=== PATIENT | male | born 1980 | race Caucasian/White ===

== ENCOUNTER 2021-09-03 09:51 | Emergency (ER) | payer SELFPAY ==
--- NOTE | ~2021-09-03 | XR_ITS ---
EXAMINATION: XR chest 1V portable DATE: 09/03/2021 10:57 INDICATION: Cough. TECHNIQUE: A single frontal view of the chest was obtained. COMPARISON: Chest 2 views 06/23/2018 FINDINGS: The chest demonstrates clear lungs without pneumonia, pleural effusion, or pneumothorax. Th e heart size is normal. IMPRESSION: 1. No acute cardiopulmonary disease. Reviewed, dictated and finalized at location A.
--- NOTE | 2021-09-03 10:00 | PC.NURSE ---
patient being checking in and refusing to wear mask, coughing in room and on staff members. patient asked to please place mask on his face over his nose per hospital policy. Patients vital signs were stable and oxygen on room air is 98%. Patient states Fuck you bitch, fuck you. Want to kick me out of this hospital, I am not putting this mask on. patient asked to please calm down and that the mask on in in department is a policy of the hospital. patient became more verbally aggressive, sitting up out of the bed, raising voice and yelling Fuck you, bitch. I don't have to listen to you. Kick me out then. patient asked to calm down and provided new mask, male RN walked into room and patient then calmed down. patient then placed mask over face.
--- NOTE | 2021-09-03 10:07 | ECG_ITS ---
Measurements Intervals [place] Rate: 74 P: 68 [place]: 121 QRS: 85 QRSD: 101 T: 77 QT: 367 QTc: 408 Interpretive Statements SINUS RHYTHM WITH SINUS ARRHYTHMIA DELAYED PRECORDIAL R/S TRANSITION MINIMAL Q WAVES- INFERIOR LEADS BASELINE ARTIFACT- I, II, III, AVR, AVL, AVF, V1-V6 BORDERLINE ECG Electronically Signed On 09-03-2021 10:16:23 CDT by Leon Solorzano D.O.
[2021-09-03 10:10] VITALS: PULSE 80
[2021-09-03 10:29] LABS: Basophils Percent Auto 0.5 % (0.2-1.2); Eosinophils Absolute Auto 0.7 K/mm3 (0-0.3); Eosinophils Percent Auto 9.1 % (0-4.4); Hematocrit 47.2 % (42.0-52.0); Hemoglobin 15.2 g/dL (14.0-18.0); Immature Granulocyte Absolute 0.02 K/mm3 (0.00-0.031); Immature Granulocyte Percent A 0.2 % (0-0.5); Lymphocytes Absolute Auto 2.41 K/mm3 (0.9-3.2); Lymphocytes Percent Auto 29.9 % (18.3-44.2); Mean Corpuscular HGB Conc 32.2 g/dl (32-36); Mean Corpuscular Hemoglobin 30.2 pg (26-34); Mean Corpuscular Volume 93.7 fl (80-100); Mean Platelet Volume 9.1 fl (7.4-10.4); Monocytes Absolute Auto 0.8 K/mm3 (0.1-0.6); Neutrophils Absolute Auto 4.1 K/mm3 (1.3-6.7); Neutrophils Percent Auto 50.3 % (45.5-73.1); Platelet Count Result 274 k/mm3 (150-375); Red Blood Count 5.04 M/mm3 (4.6-6.20); Red Cell Distribution Width 12.7 % (11.5-14.5); White Blood Count 8.1 K/mm3 (4.5-10.0)
[2021-09-03] MEDS: methylPREDNISolone SOD SUCC 125 MG VIAL 80 MG IV PUSH (10:30)
[2021-09-03 10:39] VITALS: BP 112/82; PULSE 84; RESP 24; TEMP 36.4; O2SAT 98
[2021-09-03 10:53] LABS: Alanine Aminotransferase 15 U/L (4-50); Albumin Level 4.3 g/dL (3.5-5.1); Alkaline Phosphatase 64 U/L (38-126); Anion Gap 7 mmol/L (8-16); Aspartate Amino Transferase 23 U/L (17-59); Bilirubin,Total 0.4 mg/dL (0.2-1.3); Blood Urea Nitrogen 23 mg/dL (9-20); Calcium 9.2 mg/dL (8.4-10.2); Carbon Dioxide 31 mmol/L (22-30); Chloride 102 mmol/L (98-107); Estimated CRCL calculation 74 ml/min; Estimated Glomerular Filt Rate > 60; Glucose 88 mg/dL (65-110); Potassium 4.6 mmol/L (3.4-5.0); Sodium 140 mmol/L (137-145)
--- NOTE | 2021-09-03 11:47 | ED.GENADULT ---
HPI - General Adult General Chief complaint: Shortness of Breath/Dyspnea <Eliseo Fraser PA-C - Last Filed: 09/03/21 11:56> Stated complaint: sob <Eliseo Fraser PA-C - Last Filed: 09/03/21 11:56> Time Seen by Provider: 09/03/21 09:57 <Eliseo Fraser PA-C - Last Filed: 09/03/21 11:56> Source: patient and RN notes reviewed <Eliseo Fraser PA-C - Last Filed: 09/03/21 11:56> Mode of arrival: ambulatory <Eliseo Fraser PA-C - Last Filed: 09/03/21 11:56> Limitations: no limitations <Eliseo Fraser PA-C - Last Filed: 09/03/21 11:56> History of Present Illness HPI narrative: Patient is a 40-year-old male who presents with wheezing shortness of breath that worsened today patient has a history of tobacco abuse also notably smokes methamphetamine and crack he has not done this in a week he notes that he last smoked a cigar yesterday he denies any chest pain patient notes no other URI symptoms but notes chronic cough presents nondistressed patient has not been seen for this complaint nor is he taken anything for his symptoms <Eliseo Fraser PA-C - Last Filed: 09/03/21 11:56> Related Data Allergies/adverse reactions: Allergies Allergy/AdvReac Type Severity Reaction Status Date / Time Penicillins Allergy Unknown Verified 06/23/18 16:57 <Eliseo Fraser PA-C - Last Filed: 09/03/21 11:56> Review of Systems Review of Systems: All systems reviewed & are unremarkable except as noted in HPI and below <Eliseo Fraser PA-C - Last Filed: 09/03/21 11:56> PMFSH Social History Social History: Social History (Updated 09/03/21 @ 11:48 by Eliseo Fraser PA-C) Smoking status: Current every day smoker Tobacco type: cigars Substance use type: crack/cocaine and amphetamines <Eliseo Fraser PA-C - Last Filed: 09/03/21 11:56> Exam Narrative: GENERAL: Well-appearing, well-nourished, and in no acute distress. HEAD: Normocephalic, atraumatic. EYES: PERRLA and EOMI. ENT: Nares clear, no rhinorrhea or epistaxis. Mucous membranes moist. NECK: Supple. No adenopathy or masses. CHEST: Clear to auscultation. No respiratory distress. Coarse breath sounds with some mild wheezings no crackles HEART: Regular rate and rhythm. No murmur heard. Normal peripheral pulses. EXTREMITIES: Normal range of motion. No edema. SKIN: Warm, dry, no rash. NEURO: No focal deficits. Alert and oriented x3. PSYCH: Normal mood and affect. <Eliseo Fraser PA-C - Last Filed: 09/03/21 11:56> Course Course Emergency Course: Patient evaluated the emergency department will be sent home with medications was given steroids in the emergency department is afebrile nontoxic-appearing nondistressed felt appropriate for outpatient reevaluation ABCs and vital signs intact and stable provided with reasons to return <ANNE MARIE Farias Last Filed: 09/03/21 11:56> Vital Signs Vital signs: Vital Signs Pulse Rate 80 09/03/21 10:10 Temperature 97.5 F L 09/03/21 10:39 Pulse Rate 62 09/03/21 12:06 Respiratory Rate 20 09/03/21 12:06 Blood Pressure 108/58 L 09/03/21 12:06 Pulse Oximetry 98 09/03/21 12:06 <ANNE MARIE Farias Last Filed: 09/03/21 11:56> Medical Decision Making MDM Narrative Medical decision making narrative: Patient with symptoms most consistent with bronchitis secondary to substance abuse patient denies any other URI symptoms was tested for Covid had chest radiograph given steroids will be discharged with MDI and other medications for symptoms provided with follow-up agrees to do so <ANNE MARIE Farias Last Filed: 09/03/21 11:56> Vital Signs Vital Signs: Vital Signs Pulse Rate 80 09/03/21 10:10 Temperature 97.5 F L 09/03/21 10:39 Pulse Rate 62 09/03/21 12:06 Respiratory Rate 20 09/03/21 12:06 Blood Pressure 108/58 L 09/03/21 12:06 Pulse Oximetry 98 09/03/21 12:06 <PERLA Farias
[2021-09-03 12:06] VITALS: BP 108/58; PULSE 62; RESP 20; O2SAT 98
[2021-09-03 16:43] LABS: SARS-CoV-2 RNA PCR Negative
== END 2021-09-03 12:06 | disposition home or self-care (01) ==
PROVIDERS: Emergency Medicine Emergency Medical Services; Emergency Provider General Practice
DX: J40 Bronchitis, not specified as acute or chronic (principal); Z20.822 Contact with and (suspected) exposure to COVID-19; F14.10 Cocaine abuse, uncomplicated; F15.10 Other stimulant abuse, uncomplicated; F17.290 Nicotine dependence, other tobacco product, uncomplicated; R94.31 Abnormal electrocardiogram [ECG] [EKG]
CPT/HCPCS: 36415; 71045; 80053; 85025; 87040; 93005; 96374; 99284; C9803; J2930; U0003; U0005

== ENCOUNTER 2023-01-25 13:26 | Emergency (ER) | payer BC, SELFPAY ==
[2023-01-25] VITALS (17 sets, daily range): BP systolic 106–125; BP diastolic 80–97; PULSE 62–98; RESP 12–19; TEMP 36.2; O2SAT 100
--- NOTE | ~2023-01-25 | CT_ITS ---
EXAMINATION: CT brain wo con DATE: 01/25/2023 18:13 INDICATION: Headache. TECHNIQUE: Computed tomography (CT) of the head was performed without intravenous contrast. The mA wa s adjusted according to patient size. Iterative reconstruction technique was employed. The dose-lengt h product was 605.33 mGy-cm. COMPARISON: Head CT 11/28/2017 FINDINGS: There is no intracranial hemorrhage, acute infarction, or abnormal intracranial mass lesion . The ventricles are normal in size. The orbits are normal. There is mucosal thickening in the [place] sinuses. The mastoid air cells are normal. IMPRESSION: 1. Normal brain. Reviewed, dictated and finalized at location A. IMPRESSION: 1. Normal brain.
[2023-01-25] MEDS: SODIUM CHLORIDE 0.9% IV 1,000 ML 999 ML IV CONT (15:59)
[2023-01-25] MEDS: ONDANSETRON INJ 4 MG/2 ML VIAL IV PUSH (16:00)
[2023-01-25] MEDS: KETOROLAC 30 MG/ML VIAL (*BKC) IV PUSH (16:00)
[2023-01-25 16:10] LABS: Basophils Absolute Auto 0.1 K/mm3 (0.0-0.1); Basophils Percent Auto 0.8 % (0.2-1.2); Eosinophils Absolute Auto 0.3 K/mm3 (0-0.3); Eosinophils Percent Auto 5.4 % (0-4.4); Hematocrit 49.9 % (42.0-52.0); Hemoglobin 16.3 g/dL (14.0-18.0); Immature Granulocyte Absolute 0.01 K/mm3 (0.00-0.031); Immature Granulocyte Percent A 0.2 % (0-0.5); Lymphocytes Absolute Auto 1.82 K/mm3 (0.9-3.2); Lymphocytes Percent Auto 29.8 % (18.3-44.2); Mean Corpuscular HGB Conc 32.7 g/dl (32-36); Mean Corpuscular Hemoglobin 30.2 pg (26-34); Mean Corpuscular Volume 92.4 fl (80-100); Mean Platelet Volume 9.1 fl (7.4-10.4); Monocytes Absolute Auto 0.4 K/mm3 (0.1-0.6); Monocytes Percent Auto 7.2 % (2.6-8.5); Neutrophils Absolute Auto 3.5 K/mm3 (1.3-6.7); Neutrophils Percent Auto 56.6 % (45.5-73.1); Platelet Count Result 263 k/mm3 (150-375); Red Cell Distribution Width 12.6 % (11.5-14.5); White Blood Count 6.1 K/mm3 (4.5-10.0)
[2023-01-25 16:20] LABS: Anion Gap 5 mmol/L (8-16); Blood Urea Nitrogen 16 mg/dL (9-20); Calcium 8.8 mg/dL (8.4-10.2); Carbon Dioxide 32 mmol/L (22-30); Chloride 104 mmol/L (98-107); Estimated CRCL calculation 85 ml/min; Estimated Glomerular Filt Rate > 60; Glucose 87 mg/dL (65-110); Potassium 4.3 mmol/L (3.4-5.0); Sodium 141 mmol/L (137-145)
--- NOTE | 2023-01-25 17:30 | ED.HA ---
HPI - Headache General Chief Complaint: Headache Stated Complaint: headache x 2 hours, detoxing from meth x 2 weeks Time Seen by Provider: 01/25/23 15:40 History of Present Illness HPI Narrative: Patient is a 42-year-old male who presents ER with headache. Left-sided frontal. Throbbing. Reports improved with drinking some caffeine. No trauma to the head. No IV drug use. No fevers or chills or sweats. No neck stiffness. No upper or lower extremity numbness or tingling. Has occasional change in vision related to the headache. Sensitive to light. Patient reports he quit using methamphetamine 2 weeks ago. Related Data Allergies Allergy/AdvReac Type Severity Reaction Status Date / Time Penicillins Allergy Unknown Unknown Verified 01/25/23 13:51 Review of Systems Review of Systems: All systems reviewed & are unremarkable except as noted in HPI and below Constitutional: Constitutional: Denies chills, Denies fatigue and Denies fever(s) Eyes: Eyes: Reports change in vision and Reports photophobia ENT: Denies nasal congestion and Denies sore throat Cardiovascular: Cardiovascular: Denies chest pain, Denies rapid heart rate and Denies radiating jaw, neck or arm pain Neurologic: Denies confusion, Reports headache(s), Denies focal weakness and Denies numbness PMFSH Past Medical History Medical History (Updated 01/25/23 @ 18:52 by Junaid Haas MD) Healthy adult male Surgical History Surgical History (Updated 01/25/23 @ 17:32 by Junaid Haas MD) No history of previous surgery Social History Social History (Updated 09/03/21 @ 11:48 by Eliseo Fraser, PACourtneyC) Smoking status: Current every day smoker Tobacco type: cigars Substance use type: crack/cocaine and amphetamines Exam Narrative: GENERAL: Well-appearing, well-nourished, and in no acute distress. HEAD: Normocephalic, atraumatic. EYES: PERRLA and EOMI. NECK: FROM that is painless, No midline tenderness. CHEST: Clear to auscultation. No respiratory distress. HEART: Regular rate and rhythm. Normal peripheral pulses. ABDOMEN: Soft, nontender, nondistended. EXTREMITIES: Normal range of motion. No edema. SKIN: Warm, dry, no rash. NEURO: Alert and oriented x3. PSYCH: Normal mood and affect. Course Course Emergency Course: Patient resting comfortably. Headache and vision improved with Valium and Toradol. CT negative. Feels comfortable being discharged home. Vital Signs Vital signs: Vital Signs Temperature 97.2 F L 01/25/23 13:45 Pulse Rate 98 01/25/23 13:45 Respiratory Rate 16 01/25/23 13:45 Blood Pressure 125/97 H 01/25/23 13:45 Pulse Oximetry 100 01/25/23 13:45 Oxygen Delivery Room Air 01/25/23 13:45 Temperature 97.2 F L 01/25/23 13:45 Pulse Rate 98 01/25/23 13:45 Respiratory Rate 16 01/25/23 13:45 Blood Pressure 125/97 H 01/25/23 13:45 Pulse Oximetry 100 01/25/23 13:45 Oxygen Delivery Room Air 01/25/23 13:45 MDM - Headache Lab Data 01/25/23 15:59 01/25/23 15:59 Labs: Lab Results 01/25/23 01/25/23 Range/Units 15:59 15:59 WBC 6.1 (4.5-10.0) K/mm3 RBC 5.40 (4.6-6.20) M/mm3 Hgb 16.3 (14.0-18.0) g/dL Hct 49.9 (42.0-52.0) % MCV 92.4 (80-100) fl MCH 30.2 (26-34) pg MCHC 32.7 (32-36) g/dl RDW 12.6 (11.5-14.5) % Plt Count 263 (150-375) k/mm3 MPV 9.1 (7.4-10.4) fl Immature Gran % (Auto) 0.2 (0-0.5) % Neut % (Auto) 56.6 (45.5-73.1) % Lymph % (Auto) 29.8 (18.3-44.2) % [place] % (Auto) 7.2 (2.6-8.5) % Eos % (Auto) 5.4 H (0-4.4) % Baso % (Auto) 0.8 (0.2-1.2) % Lymph # (Auto) 1.82 (0.9-3.2) K/mm3 [place] # (Auto) 0.4 (0.1-0.6) K/mm3 Eos # (Auto) 0.3 (0-0.3) K/mm3 Baso # (Auto) 0.1 (0.0-0.1) K/mm3 Abs Immat Gran (auto) 0.01 (0.00-0.031) K/mm3 Absolute Neuts (auto) 3.5 (1.3-6.7) K/mm3 Absolute Nucleated RBC 0.0 (0.0-0.012) K/mm3 Nucleated RBC % 0.0 (0.0-0.2) % Sod
[2023-01-25] MEDS: diazePAM INJ (*CRX) 10 MG/2 ML SYRINGE 2.5 MG IV PUSH (18:20)
== END 2023-01-25 19:19 | disposition home or self-care (01) ==
PROVIDERS: Emergency Provider Emergency Medicine
DX: R51.9 Headache, unspecified (principal); F17.290 Nicotine dependence, other tobacco product, uncomplicated
CPT/HCPCS: 36415; 70450; 80048; 85025; 96361; 96374; 96375; 99284; J1885; J2405; J3360; J7030

== ENCOUNTER 2025-03-21 15:09 | Emergency (ER) | payer BC, SELFPAY ==
--- NOTE | ~2025-03-21 | XR_ITS ---
XR chest 2V Ordering provider: Nina Michel PA-C History: 44 years Male with . sob . Comparison: September 03, 2021 FINDINGS: MEDIASTINUM: The cardiac silhouette is not enlarged. Prominent júnior. LUNGS: No infiltrates, effusions or pneumothorax. Emphysematous changes of the lungs. Prominent bronc hovascular markings. OTHER: No free air under the diaphragm. IMPRESSION: No acute cardiopulmonary pathology. Reviewed, dictated and finalized at location A.
--- OUTSIDE RECORDS SUMMARY | 2025-03-21 15:12 | XMS_ITS | Patient Health Record ---
Author Organization [facility] Address [address] [place] [address] Care Team Providers Care Librarian Assistant Name Role Phone Tony Holbrook Primary Care Provider [phone] [facility], Adult GEOVANNY Unavailabl e [phone] Allergies Allergen (clinical drug ingredient) Drug/Non Drug Allergy documented on EMR Reaction Allergy Type Onset Date Status chocolate (uncoded) Unknown Allergy Active penicillin (uncoded) Unknown Allergy Active Reason For Referral No Information Medications Medication SIG (Take, Route, Frequency, Duration) Notes Start Date End Date Status Multivitamin Adult - Orally Not-Taking Zoloft 25 MG 1 tablet Orally Once a day for 30 day(s) 09/25/2017 Active ZyPREXA 5 MG 1 tablet Orally Once a day for 30 day(s) 09/25/2017 Active Folic Acid 800 MCG 1 tablet Orally Once a day Active Multivitamin Adults - Orally Active tiZANidine HCl 4 MG 1 tablet Orally ever y 6 hours for 4 days Active Thiamine HCl 100 MG 1 tablet Orally Once a day Active Gabapentin 300 MG 1 capsule before bedtime Orally Once a day Active hydrOXYzine Pamoate 50 MG 1 capsule Oral ly every 4 hrs for 4 days Active Gabapentin 600 MG 1 tablet Orally Once a day Active Problems Problem Type SNOMED Code ICD Code Onset Dates Problem Status W/U Status Risk Notes Problem [id number] Moderate episode of recurrent major depressive disorder (F33.1) Active confirmed Problem [id number] Schizophrenia, unspecified type (F20.9) Active confirmed Plan Of Treatment No Information Insurance Providers Payer Name Payer Address Payer Phone Subscriber Number Group Number Insured Name Patient Relationship to Insured Coverage Start Date Coverage End Date [place] [id number] [facility] [address] [place] [phone] [id number] Norberto Benton Self - patient is the insured 3 Medical (General) History Medical History History ICD Code alcohol dependence schizophrenia anxiety depression history of IV drug use Hospitalization History Reason Date(Month/Year) [place] [address]
[2025-03-21 15:13] VITALS: BP 114/96; PULSE 100; RESP 16; TEMP 36.4; O2SAT 96
--- NOTE | 2025-03-21 15:56 | ECG_ITS ---
Test Date: 2025-03-21 16:13:38 Measurements Intervals [place] Rate: 90 P: 78 [place]: 132 QRS: 88 QRSD: 97 T: 72 QT: 352 QTc: 432 Interpretive Statements SINUS RHYTHM POSSIBLE LEFT ATRIAL ENLARGEMENT [-0.1mV P-WAVE IN V1/V2] No previous ECG available for comparison Electronically Signed On 03-21-2025 21:56:49 CDT by Osmel Tellez M.D.
--- NOTE | 2025-03-21 16:47 | ED.SOB ---
HPI - SOB/Dyspnea General Chief Complaint: Shortness of Breath/Dyspnea Stated Complaint: infection in lungs SOB Time Seen by Provider: 03/21/25 15:55 Source: patient Mode of arrival: ambulatory Limitations: no limitations History of Present Illness HPI Narrative: This is a 44 year old male that presents to the ER for shortness of breath. Reports he inhaled concrete when he was mixing it 2 days ago. Has had worsening shortness of breath, cough. Denies fevers. Related Data Allergies Allergy/AdvReac Type Severity Reaction Status Date / Time Penicillins Allergy Unknown Unknown Verified 01/25/23 13:51 Review of Systems Review of Systems: CONSTITUTIONAL: Denies fever CARDIOVASCULAR: Denies chest pain RESPIRATORY: Reports cough and dyspnea. All systems reviewed & are unremarkable except as noted in HPI and below PMFSH Past Medical History Medical History (Updated 03/21/25 @ 18:02 by JACKY HoustonC) Healthy adult male Surgical History Surgical History (Updated 01/25/23 @ 17:32 by Junaid Haas MD) No history of previous surgery Social History Social History (Updated 09/03/21 @ 11:48 by Eliseo Fraser, PACourtneyC) Smoking status: Current every day smoker Tobacco type: cigars Substance use type: crack/cocaine and amphetamines Exam Narrative: GENERAL: Well-appearing, well-nourished, and in no acute distress. HEAD: Normocephalic, atraumatic. EYES: EOMI. ENT: Nares clear, no rhinorrhea or epistaxis. Mucous membranes moist. Oropharynx without tonsillar hypertrophy exudate or other lesions. NECK: Supple. No adenopathy or masses. CHEST:No respiratory distress. Scattered expiratory wheezing. No rales or rhonchi HEART: Regular rate and rhythm. No murmur heard. Normal peripheral pulses. EXTREMITIES: Normal range of motion. No edema. SKIN: Warm, dry, no rash. NEURO: No focal deficits. Alert and oriented x3. PSYCH: Normal mood and affect Course Course Emergency Course: Patient updated on his workup. Reports feeling much better. Ready for discharge Vital Signs Vital signs: Vital Signs Temperature 97.6 F 03/21/25 15:13 Pulse Rate 100 03/21/25 15:13 Respiratory Rate 16 03/21/25 15:13 Blood Pressure 114/96 H 03/21/25 15:13 Pulse Oximetry 96 0509/25 15:13 Temperature 97.6 F 03/21/25 15:13 Pulse Rate 102 H 03/21/25 17:49 Respiratory Rate 26 H 03/21/25 17:49 Blood Pressure 122/86 03/21/25 17:49 Pulse Oximetry 98 03/21/25 17:49 Oxygen Delivery Room Air 03/21/25 17:00 MDM - SOB/Dyspnea MDM Narrative Medical decision making narrative: Patient presents the emergency department for cough, shortness of breath. He is afebrile and nontoxic appearing. His vitals are stable. Oxygen saturation is normal on room air. Cbc metabolic panel without concerning findings. Chest x-ray without acute cardiopulmonary abnormality. Patient given nebulizer treatment and steroid with improvement. Updated on his workup. Agrees with plan of care. He is to follow up with primary provider. He was given warnings to return to the ER Differential Diagnosis Differential diagnosis: Likely acute exacerbation of chronic obstructive airways disease and community acquired pneumonia Lab Data Attestation: I reviewed the patient's lab results. 03/21/25 16:58 03/21/25 16:58 Labs: Lab Results 03/21/25 Range/Units 16:58 WBC 6.0 (4.5-10.0) K/mm3 RBC 4.90 (4.6-6.20) M/mm3 Hgb 14.4 (14.0-18.0) g/dL Hct 45.0 (42.0-52.0) % MCV 91.8 (80-100) fl MCH 29.4 (26-34) pg MCHC 32.0 (32-36) g/dl RDW 13.3 (11.5-14.5) % Plt Count 216 (150-375) k/mm3 MPV 9.1 (7.4-10.4) fl Immature Gran % (Auto) 0.2 (0-0.5) % Neut % (Auto) 51.2 (45.5-73.1) % Lymph % (Auto) 35.7 (18.3-44.2) % [place] % (Auto) 10.4 H (2.6-8.5) % Eos % (Auto) 2.0 (0-4.4) % Baso % (Auto) 0.5 (0.2-1.2) % Lymph # (Auto) 2.15 (0.9-3.2) K/mm3 [place] # (Auto) 0.6 (0.1-0.6) K/mm3 Eos # (Auto) 0.1 (0-0.3) K/mm3 Baso # (Auto) 0.0 (0.0-0.1) K/mm3 Abs Immat Gran (auto) 0.01 (0.00-0.031) K/mm3 Absolute Neuts (auto) 3.1 (1.3-6.7) K/mm3 Absolute Nucleated RBC 0.000 (0.0-0.012) K/mm3 Nucleated RBC % 0.0 (0.0-0.2) % PT 13.5 (11.1-14.7) Seconds INR 1.0 APTT 31.1 (22.3-36.8) Seconds Sodium 139 (137-145) mmol/L Potassium 4.1 (3.4-5.0) mmol/L Chloride 100 (98-107) mmol/L Carbon Dioxide 31 H (22-30) mmol/L Anion Gap 8 (4-12) mmol/L BUN 20 (9-20) mg/dL Creatinine 0.81 (0.7-1.3) mg/dL Estim Creat Clear Calc 86 ml/min Estimated GFR > 60 (59 - ) Glucose 121 H (65-110) mg/dL Calcium 8.6 (8.4-10.2) mg/dL Total Bilirubin 0.3 (0.2-1.3) mg/dL AST 41 (17-59) U/L ALT 29 (6-50) U/L Alkaline Phosphatase 79 (38-126) U/L Total Protein 8.0 (6.3-8.2) g/dL Albumin 4.2 (3.5-5.1) g/dL Imaging Data Radiologist's impression: ITS Impressions Chest X-Ray 03/21/25 16:28 IMPRESSION: No acute cardiopulmonary pathology. ECG Data EKG #1: ECG completion date: 03/21/25 EKG Interpretation: normal rate, sinus rhythm, no ST changes and normal QT Critical Care Time Critical Care Time Critical Care Time: No Discharge Plan Discharge Clinical Impression: Acute bronchitis Qualifiers: Bronchitis organism: unspecified organism Qualified Code(s): J20.9 - Acute bronchitis, unspecified Patient Disposition: Home Condition: Improved Instructions: Acute Bronchitis (ED) Additional Instructions: Return to the emergency department for worsening symptoms, or any other concerns Remain well-hydrated, get plenty of rest. Take Tylenol or Motrin [id number] for pain as needed. Continue steroid as prescribed. Albuterol 2 puffs every 4-6 hours as needed for shortness of breath or wheezing Follow up with primary care doctor Patient Language: Jordanian Prescriptions: New prednisone 20 mg tablet 40 mg PO DAILY 4 Days Qty: 8 0RF albuterol sulfate [Ventolin HFA] 90 mcg/actuation HFA aerosol inhaler 2 puff inhalation QID PRN (Reason: shortness of breath or wheezing) Qty: 8.5 0RF No Action prednisone 20 mg tablet 20 mg PO BID 3 Days Qty: 6 0RF albuterol sulfate 90 mcg/actuation HFA aerosol inhaler 2 puff inhalation QID PRN (Reason: shortness of breath or wheezing) Qty: 8.5 0RF naproxen 375 mg tablet 375 mg PO BID Qty: 14 0RF Follow-up/Referrals: Kate Turner MD [Physician] - PHYSICIAN,RETAIL FINANCIAL ANALYST [Primary Care Provider] -
[2025-03-21 16:48] VITALS: BP 121/81; PULSE 97; PULSE 99; RESP 20; O2SAT 97
[2025-03-21] MEDS: methylPREDNISolone SOD SUCC 125 MG VIAL IV PUSH (16:56)
[2025-03-21 17:00] VITALS: O2SAT 98
[2025-03-21 17:02] LABS: Basophils Percent Auto 0.5 % (0.2-1.2); Eosinophils Absolute Auto 0.1 K/mm3 (0-0.3); Hemoglobin 14.4 g/dL (14.0-18.0); Immature Granulocyte Absolute 0.01 K/mm3 (0.00-0.031); Immature Granulocyte Percent A 0.2 % (0-0.5); Lymphocytes Absolute Auto 2.15 K/mm3 (0.9-3.2); Lymphocytes Percent Auto 35.7 % (18.3-44.2); Mean Corpuscular Hemoglobin 29.4 pg (26-34); Mean Corpuscular Volume 91.8 fl (80-100); Mean Platelet Volume 9.1 fl (7.4-10.4); Monocytes Absolute Auto 0.6 K/mm3 (0.1-0.6); Monocytes Percent Auto 10.4 % (2.6-8.5); Neutrophils Absolute Auto 3.1 K/mm3 (1.3-6.7); Neutrophils Percent Auto 51.2 % (45.5-73.1); Platelet Count Result 216 k/mm3 (150-375); Red Cell Distribution Width 13.3 % (11.5-14.5)
[2025-03-21] MEDS: IPRATROPIUM 0.5 MG/ALBUTEROL SULFATE 2.5 MG AMPUL.NEB 3 ML INHALATION (17:10)
[2025-03-21 17:11] VITALS: PULSE 95; RESP 22
[2025-03-21 17:13] LABS: Alanine Aminotransferase 29 U/L (6-50); Albumin Level 4.2 g/dL (3.5-5.1); Alkaline Phosphatase 79 U/L (38-126); Anion Gap 8 mmol/L (4-12); Aspartate Amino Transferase 41 U/L (17-59); Bilirubin,Total 0.3 mg/dL (0.2-1.3); Blood Urea Nitrogen 20 mg/dL (9-20); Calcium 8.6 mg/dL (8.4-10.2); Carbon Dioxide 31 mmol/L (22-30); Chloride 100 mmol/L (98-107); Estimated CRCL calculation 86 ml/min; Estimated Glomerular Filt Rate > 60; Glucose 121 mg/dL (65-110); Potassium 4.1 mmol/L (3.4-5.0); Sodium 139 mmol/L (137-145)
[2025-03-21 17:20] LABS: Prothrombin Time 13.5 Seconds (11.1-14.7)
[2025-03-21 17:21] VITALS: PULSE 112; RESP 20
[2025-03-21 17:21] LABS: Partial Thromboplastin Time 31.1 Seconds (22.3-36.8)
[2025-03-21 17:49] VITALS: BP 122/86; PULSE 102; RESP 26; O2SAT 98
== END 2025-03-21 18:20 | disposition home or self-care (01) ==
PROVIDERS: Emergency Provider Physician Assistant
DX: J20.9 Acute bronchitis, unspecified (principal)
CPT/HCPCS: 36415; 71046; 80053; 85025; 85610; 85730; 93005; 94640; 96361; 96374; 99284; J2919